=== PATIENT | female | born 1995 | race Caucasian/White ===

== ENCOUNTER 2018-10-06 21:43 | Inpatient (IN) | payer MEDICAID, OTHER ==
[~2018-10-06] VITALS: Ht 160 cm; Wt 72.7 kg
[2018-10-07] VITALS (26 sets, daily range): BP systolic 108–140; BP diastolic 69–91; PULSE 81–139; RESP 16–43; Ht 160 cm; Wt 72.7 kg
[2018-10-07] MEDS ORDERED: ONDANSETRON 4 MG INJ IV STA ×3 (00:11→00:41)
--- NOTE | 2018-10-07 00:18 | ERD ---
ER Documentation Chief Complaint Chief Complaint AP HPI The patient is a 23-year-old female, presenting to the ER because of diffuse abdominal pain for 1 week, worse tonight. The pain is more on the left side, complains of vomiting and diarrhea, denies hematemesis/hematochezia, complains of acute on chronic painful urination. She does not smoke, drinks socially, denies illicit drug, LMP was 3 months ago Medical/surgical history: None ROS All systems reviewed and are negative except as per history of present illness. Allergies Allergies: Coded Allergies: No Known Allergy (Unverified , 10/07/18) PMhx/Soc Medical and Surgical Hx: pt denies Medical Hx, pt denies Surgical Hx Hx Alcohol Use: No Hx Substance Use: No Hx Tobacco Use: No Smoking Status: Never smoker Physical Exam Vitals Vital Signs Date Temp Pulse Resp B/P (MAP) Pulse Ox O2 O2 Flow FiO2 Time Delivery Rate 10/07/18 143 40 95/46 (62) 99 Room Air 01:19 10/07/18 136 20 77/47 (57) 99 Room Air 00:23 10/06/18 97.6 144 20 132/89 97 21:50 (103) Physical Exam Const: No acute distress. Pale Head: Atraumatic. Eyes: Normal Conjunctiva. ENT: Normal External Ears, Nose and Mouth. Neck: Full range of motion. No meningismus. Resp: Clear to auscultation bilaterally. Cardio: Regular tachycardic Abd: Soft, distended, normal bowel sounds, moderate to severe diffuse abdominal tenderness, positive for guarding Skin: No petechiae or rashes. Back: No midline or flank tenderness. Ext: No cyanosis, or edema. Neur: Awake and alert. No focal deficit Psych: Normal Mood and Affect. Result Diagram: 10/07/18 0001 10/07/18 0001 Results 24 hrs Laboratory Tests Test 10/07/18 00:01 White Blood Count 30.2 10^3/ul Red Blood Count 3.70 10^6/ul Hemoglobin 10.9 g/dl Hematocrit 33.2 % Mean Corpuscular Volume 89.7 fl Mean Corpuscular Hemoglobin 29.5 pg Mean Corpuscular Hemoglobin Concent 32.8 g/dl Red Cell Distribution Width 13.0 % Platelet Count 334 10^3/UL Mean Platelet Volume 11.5 fl Immature Granulocytes % 2.500 % Neutrophils % 75.9 % Lymphocytes % 15.2 % Monocytes % 5.4 % Eosinophils % 0.4 % Basophils % 0.6 % Nucleated Red Blood Cells % 0.0 /100WBC Immature Granulocytes # 0.760 10^3/ul Neutrophils # 22.9 10^3/ul Lymphocytes # 4.6 10^3/ul Monocytes # 1.6 10^3/ul Eosinophils # 0.1 10^3/ul Basophils # 0.2 10^3/ul Nucleated Red Blood Cells # 0.0 10^3/ul Sodium Level 138 mmol/L Potassium Level 3.0 mmol/L Chloride Level 101 mmol/L Carbon Dioxide Level 17 mmol/L Anion Gap 20 Blood Urea Nitrogen 10 mg/dl Creatinine 1.33 mg/dl Est Glomerular Filtrat Rate mL/min 50 mL/min Glucose Level 353 mg/dl Calcium Level 8.8 mg/dl Total Bilirubin 0.3 mg/dl Direct Bilirubin 0.00 mg/dl Indirect Bilirubin 0.3 mg/dl Aspartate Amino Transf (AST/SGOT) 19 IU/L Alanine Aminotransferase (ALT/SGPT) 21 IU/L Alkaline Phosphatase 50 IU/L Total Protein 6.4 g/dl Albumin 4.0 g/dl Globulin 2.40 g/dl Albumin/Globulin Ratio 1.66 Lipase 64 U/L Beta HCG, Quantitative 93209.0 mIU/ml Current Medications Medications Dose Sig/Tamar Start Time Status Last (Trade) Ordered Route PRN Stop Time Admin Dose Reason Admin Ondansetron 4 mg ONCE STAT 10/07/18 DC 10/07/18 HCl (Zofran IV 00:11 00:16 Inj) 10/07/18 00:13 Sodium 1,000 ml @ Q1H ONCE 10/07/18 DC 10/07/18 Chloride 1,000 mls/hr IV 01:00 00:47 10/07/18 01:59 Sodium 1,000 ml @ Q1H ONCE 10/07/18 DC 10/07/18 Chloride 1,000 mls/hr IV 01:00 01:03 10/07/18 01:59 Ondansetron 4 mg ONCE STAT 10/07/18 DC HCl (Zofran IV 00:31 Inj) 10/07/18 00:35 Ondansetron 4 mg ONCE STAT 10/07/18 DC HCl (Zofran IV 00:41 Inj) 10/07/18 00:42 Piperacillin 100 ml @ ONCE ONCE 10/07/18 DC 10/07/18 Sod/ 200 mls/hr IVPB 02:00 01:55 Tazobactam 10/07/18 02:29 Sod Potassium 100 ml @ ONCE ONCE 10/07/18 Chloride 50 mls/hr IVPB 02:00 10/07/18 03:59 250 ml @ ud STK-MED 10/07/18 DC Norepinephrin ONCE .ROUTE 02:40 e 10/07/18 02:41 250 ml @ TITRATE IV 10/07/18 10/07/18 Norepinephrin 1.875 mls/ 03:00 02:56 e hr Procedures/[place] [id number] Radiology Main Line: [phone] DIAGNOSTIC IMAGING REPORT Patient: SUKHJINDER PARIKH : 1995 Age: 23 Sex: F MR #: [id number] DOS: 10/07/18 0034 Ordering MD: SAHIL MARTINO MD Location: E/R Room/Bed: PROCEDURE: US Pelvis. CLINICAL INDICATION: Vaginal Bleed () TECHNIQUE: Multiple sonographic images of the pelvis were obtained utilizing a transabdominal and endovaginal technique. The images were reviewed on a PACS workstation. COMPARISON: None. FINDINGS: Within the left adnexa, a gestational sac is seen with a pole. Blunt rump length measures 16 mm, corresponding to an estimated gestational age of 8 weeks and 0 days. No heart tones are identified. The ovaries are not visualized. There is diffuse complex free fluid in the pe lvis. Small amount of simple free fluid is seen in the cul-de-sac as well. No intrauterine is seen within the uterus. Endometrial stripe is at the upper limits of normal for a premenopausal female, measuring 16 mm. No uterine mass identified. IMPRESSION: Gestational sac and pole identified in the left adnexa, with diffuse blood products in the pelvis. Findings consistent with ruptured ectopic . Critical findings were discussed with Sahil Mccoy ([place]) on 10/07/2018 at 2:11 AM. RPTAT:HCLE binh Bonilla, Physician Date Time Electronically viewed and signed by binh Bonilla Physician on 10/07/2018 02:14 cE/ CC: SAHIL MARTINO MD [id number] MEDICAL MAKING DECISION: The patient is a 23-year-old female, presenting with acute hypotensive and acute abdominal and pelvic pain, consistent with acute ruptured ectopic . She was treated immediately with 2 L normal saline, Zofran 4 mg IV x2 for nausea. She is still awake, alert, able to answer question but feeling very tired. She also presented with acute kidney injury, acute hypokalemia, acute hyperglycemia The differential diagnoses considered include but are not limited to cholelithiasis, cholecystitis, choledocholithiasis, cholangitis, pancreatitis, hepatitis, gastritis, peptic ulcer disease, gastric ulcer, appendicitis, cystitis, diverticulitis, partial small bowel obstruction. Consultation: I discussed the patient with the on-call sheriff detective Dr. Baugh at 1:30am before the labs are available, while the thermoplastic technician is doing the pelvic ultrasound. There are lots of blood in the pelvic area. I highly believed that it is a ruptured ectopic and requested her presence in the ER for evaluation of the patient for probable ectopic . She came down to the ER, examined the patient and agree with a tentative diagnosis of ruptured ectopic and plan for immediate surgery When the lab came back, beta hCG was 40,021, and I was able to speak to the radiologist to confirm that it is a ruptured ectopic At this time the lab came back with high leukocytosis, she was treated empirically with Zosyn IV, potassium chloride 20 mg IV for acute hyperkalemia, she was treated with Leon catheter, 2 unit of packed red blood cell. She was started on Levophed because of hypotension in the 70 after 2 L IVF while the p RBC is infusing. She remains awake/ alert throughout Central Line Placement by me: After the patient was consented and a time out was performed, appropriate hand hygiene was performed, the skin site was fully prepped and maximal sterile barrier technique was employed where the patient was sterilely draped, and the provider wore a mask and sterile gown and gloves. Anesthesia: 1% lidocaine locally Location: RIJ Device: Multiple lumen Technique: Seldinger technique. Secured with suture. Results: Venous return from all ports with easy saline flush. No complications. []Guide wire retrieved and disposed of. ED Ultrasound: Central line placed by me using concurrent ultrasound guidance done using sterile technique. Real time image archived in the medical record confirms vascular anatomy. Chest X-ray was ordered but the anesthesiologist wanted to take her immediately to the OR and will do in the ER Critical Care: Time: 35 minutes excluding all billable procedures. Treatments/Evaluations: Close monitoring and treatment of unstable vital signs, cardiorespiratory, and neurologic status, while maintaining tight balance of fluid, respiratory, and cardiac interventions. Departure Diagnosis: Primary Impression: Ruptured ectopic Additional Impressions: STONEY (acute kidney injury) Hypokalemia Hyperglycemia Anemia Leukocytosis Condition: Critical Comments I discussed the findings with the patient. I discussed the patient with Dr Baugh , who was made aware of the lab, the treatment, the patient condition. The patient is transferred to the OR Disclaimer: Inadvertent spelling and grammatical errors are likely due to EHR/dictation software use and do not reflect on the overall quality of patient care. Also, please note that the electronic time recorded on this note does not necessarily reflect the actual time of the patient encounter. SAHIL MARTINO MD October 07, 2018 00:18
[2018-10-07] MEDS ORDERED: SOD CHLORIDE 0.9% 1,000 ML IV ONE ×2 (01:00)
[2018-10-07] MEDS ORDERED: PIPER-TAZO 3.375 GM IV (PMX) 100 ML IVPB ONE (02:00)
[2018-10-07] MEDS ORDERED: POTASSIUM CHLORIDE 100 ML IVPB ONE (02:00)
--- NOTE | 2018-10-07 02:25 | CONS ---
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 U/S showes GS on left adnexa with FF in the cul de sac suggesting hemoperitoneum. HCG 40.000 with WBC 77183 Initiallu patient was tacycardic and hypotensive , resolved somewhat with f luid replacement. H&H 10.9 32 prepare for exp lap and left .salphingectomy and further indicated abdominal pain and nausea and vomiting Constitutional: no complaints, improved Eyes: no complaints ENT: no complaints Respiratory: no complaints Cardiovascular: no complaints Gastrointestinal: pain, nausea, vomiting Genitourinary: no complaints Musculoskeletal: no complaints Skin: no complaints; No bruising, No erythema, No laceration, No pruritis, No rash, No skin lesions, No other Neurologic: no complaints Endocrine: no complaints Lymphatic: no complaints Psychological: no complaints, nl mood/affect Immunologic: no complaints Past Medical History Medical History: no pertinent history Medications Current Medications Piperacillin Sod/ Tazobactam Sod 100 ml @ 200 mls/hr ONCE ONCE IVPB Last administered on 10/07/18at 01:55; Admin Dose 200 MLS/HR; Start 10/07/18 at 02:00; Stop 10/07/18 at 02:29 Potassium Chloride 100 ml @ 50 mls/hr ONCE ONCE IVPB ; Start 10/07/18 at 02:00; Stop 10/07/18 at 03:59 Allergies: Coded Allergies: No Known Allergy (Unverified , 10/07/18) Past Surgical History Past Surgical Hx: no surgical history Family History Significant Family History: no pertinent family hx Social History Alcohol Use: none Smoking Status: Never smoker Drug Use: none Exam/Review of Systems Exam Vitals Vital Signs Date Temp Pulse Resp B/P (MAP) Pulse Ox O2 O2 Flow FiO2 Time Delivery Rate 5/24/19 143 40 95/46 (62) 99 Room Air 01:19 10/06/18 97.6 21:50 Intake and Output 10/06/18 10/06/18 10/07/18 1414:59 22:59 06:59 IntakeIntake Total 2000 ml BalanceBalance 2000 ml Constitutional: oriented, obese Psych: no complaints, nl mood/affect Head: normocephalic, atraumatic Eyes: other (pale conjuntiva ) ENMT: nl external ears & nose, nl lips & teeth, nl nasal mucosa & septum Neck: supple, non-tender Respiratory: clear to auscultation, normal air movement Cardiovascular: regular rate and rhythm, nl pulses (tacycardic) Gastrointestinal: tender ( lower abdomen Lt>RT) Genitourinary - Female: other (lt adnexa GS) Musculoskeletal: nl extremities to inspection, nl gait and stance Extremities: normal pulses Neurological: EDI MANAGER II-XII intact, nl mental status, nl speech, nl strength Results Result Diagram: 10/07/18 0001 10/07/18 0001 Results 24hrs Laboratory Tests Test 10/07/18 00:01 White Blood Count 30.2 H Red Blood Count 3.70 L Hemoglobin 10.9 L Hematocrit 33.2 L Mean Corpuscular Volume 89.7 Mean Corpuscular Hemoglobin 29.5 Mean Corpuscular Hemoglobin Concent 32.8 Red Cell Distribution Width 13.0 Platelet Count 334 Mean Platelet Volume 11.5 H Immature Granulocytes % 2.500 H Neutrophils % 75.9 Lymphocytes % 15.2 Monocytes % 5.4 Eosinophils % 0.4 Basophils % 0.6 Nucleated Red Blood Cells % 0.0 Immature Granulocytes # 0.760 H Neutrophils # 22.9 H Lymphocytes # 4.6 H Monocytes # 1.6 H Eosinophils # 0.1 Basophils # 0.2 H Nucleated Red Blood Cells # 0.0 Sodium Level 138 Potassium Level 3.0 L Chloride Level 101 Carbon Dioxide Level 17 L Anion Gap 20 H Blood Urea Nitrogen 10 Creatinine 1.33 H Est Glomerular Filtrat Rate mL/min 50 L Glucose Level 353 H Calcium Level 8.8 Total Bilirubin 0.3 Direct Bilirubin 0.00 Indirect Bilirubin 0.3 Aspartate Amino Transf (AST/SGOT) 19 Alanine Aminotransferase (ALT/SGPT) 21 Alkaline Phosphatase 50 Total Protein 6.4 Albumin 4.0 Globulin 2.40 Albumin/Globulin Ratio 1.66 Lipase 64 Beta HCG, Quantitative 49027.0 Medications Medication Current Medications Piperacillin Sod/ Tazobactam Sod 100 ml @ 200 mls/hr ONCE ONCE IVPB Last administered on 10/07/18at 01:55; Admin Dose 200 MLS/HR; Start 10/07/18 at 02:00; Stop 10/07/18 at 02:29 Potassium Chloride 100 ml @ 50 mls/hr ONCE ONCE IVPB ; Start 10/07/18 at 02:00; Stop 10/07/18 at 03:59 RICK SANDERSON MD October 07, 2018 02:18
[2018-10-07] MEDS ORDERED: NORepinephrine 8MG/250 ML (PMX 250 ML ONE (02:40)
--- NOTE | 2018-10-07 02:58 | PREAC ---
Date/Time of Note Date/Time of Note DATE: 10/07/18 TIME: 02:56 Anesthesia Eval and Record Evaluation Time Pre-Procedure Interview DATE: 10/07/18 TIME: 02:56 Age 23 Sex female NPO: 8 hrs Preoperative diagnosis ectopic Planned procedure exploratory lap Past Medical History Past Medical History: Includes (hemorrhagic shock, s/p CVL on levophed 5) Surgery & Anesthesia Issues No known issue Meds Anticoagulation: No Beta Susanna within 24 hr: No Reason Beta Susanna not given: Pt. not on B-Susanna Current Medications Potassium Chloride 100 ml @ 50 mls/hr ONCE ONCE IVPB ; Start 10/07/18 at 02:00; Stop 10/07/18 at 03:59 Norepinephrine 250 ml @ 1.875 mls/ hr TITRATE IV ; Start 10/07/18 at 03:00 Meds reviewed: Yes Allergies Coded Allergies: No Known Allergy (Unverified , 10/07/18) Allergies Reviewed: Yes Labs/Studies Labs Reviewed: Reviewed by anesthesiologist Result Diagram: 10/07/18 0001 10/07/18 0001 Laboratory Tests 10/07/18 00:01 Blood Bank Test 10/07/18 00:46 Antibody Screen NEGATIVE Blood Product Summary Counts Blood Type O POSITIVE Crossmatch Red Blood Cells test: N/A Pre-procedure Exam Last vitals Vital Signs Date Temp Pulse Resp B/P (MAP) Pulse Ox O2 O2 Flow FiO2 Time Delivery Rate 10/07/18 143 40 95/46 (62) 99 Room Air 01:19 10/06/18 97.6 21:50 Airway: Adequate mouth opening, Adequate thyromental dist Mallampati: Mallampati II Teeth: Normal Lung: Normal Heart: Normal ASA Physical Status ASA physical status: 2 Emergency: E Planned Anesthetic General/MAC: ETT Nerve block: TAP (bilateral) Planned Pain Management Parenteral pain med Pre-operative Attestations Prior to commencing anesthesia and surgery, the patient was re-evaluated, there was verification of: *The patient's identity *The results of appropriate recent lab work and preoperative vital signs *The above evaluation not changing prior to induction *Anesthetic plan, risk benefits, alternative and complications discussed with patient/family; questions answered; patient/family understands, accepts and wishes to proceed. Abner France M.D. October 07, 2018 02:58
[2018-10-07] MEDS ORDERED: NORepinephrine 8MG/250 ML (PMX 250 ML IV SCH (03:00)
[2018-10-07] MEDS ORDERED: CEFAZOLIN 1 GM INJ ONE (03:04)
[2018-10-07] MEDS ORDERED: ROCURONIUM 50 MG INJ ONE (03:04)
[2018-10-07] MEDS ORDERED: PROPOFOL 20 ML ONE (03:04)
[2018-10-07] MEDS ORDERED: NEOSTIGMINE 3 MG/3 ML SYRINGE ONE (03:04)
[2018-10-07] MEDS ORDERED: GLYCOPYRROLATE 0.4 MG INJ ONE (03:04)
[2018-10-07] MEDS ORDERED: FENTAnyl 50 MCG/ML VIAL ONE ×3 (03:04→05:54)
[2018-10-07] MEDS ORDERED: ONDANSETRON 4 MG INJ ONE (03:05)
[2018-10-07] MEDS ORDERED: DEXAMETHASONE 4 MG/ML 5 ML INJ ONE (03:05)
[2018-10-07] MEDS ORDERED: MIDAZOLAM 1 MG/ML 2 ML INJ ONE (03:05)
[2018-10-07] MEDS ORDERED: ROPIVACAINE 0.5 % 30 ML VIAL ONE (04:02)
[2018-10-07] MEDS ORDERED: ALBUMIN HUMAN 5% 500 ML ONE (04:10)
[2018-10-07] MEDS ORDERED: SUGAMMADEX SODIUM 200 MG/2 ML VIAL IV ONE (05:40)
--- NOTE | 2018-10-07 07:57 | SIPON ---
Date/Time of Note Date/Time of Note DATE: 10/07/18 TIME: 07:52 Operative Report Preoperative Diagnosis ruptured ectopic hemoperitoneum Postoperative Diagnosis same as above gestational ssac intact with fetusin it ruptured left tube isthmic portion Operation/Procedure Performed exp lap left salphingectomy evacuation of hemoperitoneum( 1999cc) Surgeon see signature line nurse assistant MT Anesthesia: general Estimated blood loss: 10 - 50 ml's Transfusion Required 4 packs of RBC Specimen GS with fetus and left tube Grafts/Implants none Complications none RICK SANDERSON MD October 07, 2018 07:57
[2018-10-07] MEDS: HYDROmorphONE 1 MG/ML SYG IV PRN ×5 (09:52→22:02)
--- NOTE | 2018-10-07 14:52 | HP ---
Date/Time of Note Date/Time of Note DATE: 10/07/18 TIME: 14:49 Assessment/Plan VTE Prophylaxis Risk score (from Ns)>0 risk: 6 SCD applied (from [facility] [place]): Yes Pharmacological prophylaxis: NA/contraindicated Pharm contraindication: bleeding Lines/Catheters IV Catheter Type (from Rust): Saline Lock Urinary Cath still in place: Yes Reason Cath still needed: other (indicate) Assessment/Plan Hospital Course S: abd pain +++ O: Constitutional: alert, oriented Head: atraumatic, normocephalic Neck: non-tender, supple Respiratory: clear to auscultation Cardiovascular: regular rate and rhythm Gastrointestinal: S/ NT / ND / +BS Extremities: no edema, good radial pulses assessment and plan: 1. Severe acute blood loss anemia secondary to ruptured ectopic with hemoperitoneum -Patient is status post emergent expiratory laparotomy with left salpingectomy and evacuation of hemoperitoneum . -Patient is also status post 4 units of packed red cells 2. Hypovolemic shock secondary to blood loss: Resolved, now off pressors 3. Severe systemic inflammatory response syndrome: Improved 4. Acute renal insufficiency likely secondary to hypovolemia: Improved 5. Mild hypokalemia: Repleted 6. Thrombocytopenia: Consumptive Disposition: -If patient remains off pressors for at least 6 to 8 hours, she can be transferred to telemetry unit for continued monitoring and management. -She does remain tachycardic, continue IV fluids, continue postoperative supportive care. -Patient is also still having significant postoperative pain, recommend that she remain on clear liquids for now, ambulate as tolerated, continue close monitoring, further interventions per clinical course. CRITICAL CARE TIME: >35 mins of which more than half was spent at the bedside and during counselling Result Diagram: 10/07/18 0830 10/07/18 0816 Results 24hrs Laboratory Tests Test 10/07/18 00:01 10/07/18 08:16 10/07/18 08:30 White Blood Count 30.2 H 19.7 #H Red Blood Count 3.70 L 3.79 L Hemoglobin 10.9 L 11.3 L Hematocrit 33.2 L 32.7 L Mean Corpuscular Volume 89.7 86.3 Mean Corpuscular Hemoglobin 29.5 29.8 Mean Corpuscular Hemoglobin Concent 32.8 34.6 Red Cell Distribution Width 13.0 13.7 Platelet Count 334 104 #L Mean Platelet Volume 11.5 H 10.8 H Immature Granulocytes % 2.500 H 1.100 H Neutrophils % 75.9 87.7 H Lymphocytes % 15.2 6.7 L Monocytes % 5.4 4.3 Eosinophils % 0.4 0.0 Basophils % 0.6 0.2 Nucleated Red Blood Cells % 0.0 0.0 Immature Granulocytes # 0.760 H 0.220 H Neutrophils # 22.9 H 17.3 H Lymphocytes # 4.6 H 1.3 Monocytes # 1.6 H 0.9 Eosinophils # 0.1 0.0 Basophils # 0.2 H 0.0 Nucleated Red Blood Cells # 0.0 0.0 Sodium Level 138 139 Potassium Level 3.0 L 4.7 Chloride Level 101 114 H Carbon Dioxide Level 17 L 21 Anion Gap 20 H 4 #L Blood Urea Nitrogen 10 8 Creatinine 1.33 H 0.61 Est Glomerular Filtrat Rate mL/min 50 L > 60 Glucose Level 353 H 112 # Calcium Level 8.8 7.1 L Total Bilirubin 0.3 Direct Bilirubin 0.00 Indirect Bilirubin 0.3 Aspartate Amino Transf (AST/SGOT) 19 Alanine Aminotransferase (ALT/SGPT) 21 Alkaline Phosphatase 50 Total Protein 6.4 Albumin 4.0 Globulin 2.40 Albumin/Globulin Ratio 1.66 Lipase 64 Beta HCG, Quantitative 83310.0 HPI/ROS Admit Date/Time Admit Date/Time 10/07/18 Hx of Present Illness 23-year-old female who had presented to the emergency room because of diffuse abdominal pain that had been going on for a week but was worse yesterday on the left side. She had also had some vomiting and dysuria. She was worked up using an ultrasound of the pelvis after her labs that showed that she was she was found to have an ectopic in the left adnexa with diffuse blood products in the pelvis. A central line was placed in the emergency room and the patient was taken immediately to the operating room where she underwent emergent expiratory laparotomy with left salpingectomy and evacuation of hemoperitoneum. Patient lost 2 L of blood and has required 4 units of packed red cells transfusion since surgery. At this time she is doing well. She was in septic shock at this time is off pressor support still remains mildly tachycardic. Her main complaint at this time is significant postoperative pain she is being given intravenous Dilaudid every 2 hours which tends to take the edge of the pain. Will be consulted for medical management and monitoring. She did have a transient increase in her creatinine levels, but this has improved after transfusion. There has been no fever, no shortness of breath, no chest pain. Patient is overall lethargic. ROS 12 point review if systems was done and pertinent findings are as noted. PMH/Family/Social Past Medical History Medical History: no pertinent history Medications Current Medications Hydromorphone HCl (Dilaudid) 1 mg Q2H PRN IV SEVERE PAIN LEVEL 7-10 Last administered on 10/07/18at 13:22; Admin Dose 1 MG; Start 10/07/18 at 10:00 Coded Allergies: No Known Allergy (Unverified , 10/07/18) Past Surgical History Past Surgical Hx: no surgical history Family History Significant Family History: no pertinent family hx Social History Alcohol Use: none Smoking Status: Never smoker Drug Use: none Exam/Review of Systems Vital Signs Vitals Vital Signs Date Temp Pulse Resp B/P (MAP) Pulse Ox O2 O2 Flow FiO2 Time Delivery Rate 10/07/18 106 27 124/75 100 Nasal 2.0 14:00 (91) Cannula 10/07/18 98.7 12:00 Intake and Output 10/06/18 10/06/18 10/07/18 1515:00 23:00 07:00 IntakeIntake Total 5100 ml OutputOutput Total 3250 ml BalanceBalance 1850 ml ELAYNE PAZ October 07, 2018 14:52
[2018-10-07] MEDS: SOD CHLORIDE 0.9% 1,000 ML IV SCH ×2 (15:45→22:32)
--- NOTE | 2018-10-07 16:04 | QN ---
Documentation Comment VSS no tachycardia RR down to 22 h&H stable no further blood transfusion required no FFP given [place] [address] [place] [address] observe tonite in ICU out in am to telemetry RICK SANDERSON MD October 07, 2018 16:04
[2018-10-08] VITALS (11 sets, daily range): BP systolic 102–117; BP diastolic 51–68; PULSE 80–127; RESP 18–22
[2018-10-08] MEDS: HYDROmorphONE 1 MG/ML SYG IV PRN ×6 (02:23→20:55)
[2018-10-08] MEDS: SOD CHLORIDE 0.9% 1,000 ML IV SCH ×3 (06:11→23:00)
--- NOTE | 2018-10-08 11:04 | PAC ---
Date/Time of Note Date/Time of Note DATE: 10/08/18 TIME: 11:03 Post-Anesthesia Notes Post-Anesthesia Note Last documented vital signs Vital Signs Date Temp Pulse Resp B/P (MAP) Pulse Ox O2 O2 Flow FiO2 Time Delivery Rate 10/08/18 83 08:00 10/08/18 98.6 22 102/51 96 Room Air 07:43 (68) 10/08/18 1.0 07:26 Activity: WNL Respiratory function: WNL Cardiovascular function: WNL Mental status: Baseline Pain reasonably controlled: Yes Hydration appropriate: Yes Nausea/Vomiting absent: Yes Abner France M.D. October 08, 2018 11:04
--- NOTE | 2018-10-08 12:29 | QN ---
Documentation Comment Postop day #1 Status post exploratory laparotomy, left salpingectomy and evacuation of hemoperitoneum (2 L) for ruptured ectopic Patient received a total of 4 units of packed RBCs Patient stable doing well Complaining of incisional pain Vital signs stable VS - Last 72 Hours, by Label Date Temp Pulse Resp B/P (MAP) Pulse Ox O2 O2 Flow FiO2 Time Delivery Rate 10/08/18 97.6 120 22 112/62 96 Room Air 11:46 (79) 10/08/18 83 08:00 10/08/18 98.6 98 22 102/51 96 Room Air 07:43 (68) 10/08/18 Nasal 1.0 07:26 Cannula 10/08/18 85 04:00 10/08/18 98.2 80 18 111/53 98 Nasal 2.0 04:00 (72) Cannula 10/08/18 2.0 01:47 10/08/18 98.1 83 18 107/56 97 Nasal 2.0 00:14 (73) Cannula 10/08/18 90 00:00 10/07/18 113 20:00 10/07/18 Nasal 2.0 19:50 Cannula 10/07/18 130 19:48 10/07/18 98.2 96 18 140/86 100 Nasal 2.0 19:40 (104) Cannula 10/07/18 2.0 18:48 10/07/18 98.6 115 16 123/69 100 Nasal 18:44 (87) Cannula 10/07/18 99 16:57 10/07/18 Nasal 2.0 16:29 Cannula 10/07/18 96 22 117/75 100 15:00 (89) 10/07/18 106 27 124/75 100 Nasal 2.0 14:00 (91) Cannula 10/07/18 114 25 114/78 100 13:00 (90) 10/07/18 117 12:00 10/07/18 98.7 116 39 115/76 100 Nasal 2.0 12:00 (89) Cannula 10/07/18 118 43 117/86 100 11:00 (96) 10/07/18 139 26 137/91 100 Nasal 2.0 10:00 (106) Cannula 10/07/18 108 29 114/91 09:30 (99) 10/07/18 90 31 118/83 100 Nasal 2.0 09:00 (95) Cannula 10/07/18 105 36 118/83 08:45 (95) 10/07/18 96 26 114/75 08:30 (88) 10/07/18 86 39 108/79 08:15 (89) 10/07/18 89 08:00 10/07/18 Nasal 2.0 08:00 Cannula 10/07/18 98.5 90 38 114/81 100 Nasal 2.0 08:00 (92) Cannula 10/07/18 87 38 108/76 07:45 (87) 10/07/18 87 28 113/85 07:30 (94) 10/07/18 94 30 120/84 07:15 (96) 10/07/18 101 25 111/75 100 Room Air 2.0 07:00 (87) 10/07/18 81 27 114/75 06:45 (88) 10/07/18 92 25 115/76 06:30 (89) 10/07/18 98.0 06:24 10/07/18 116 16 116/69 06:15 (85) 10/07/18 123 06:11 10/07/18 100 2.0 06:10 10/07/18 97.6 101 24 124/79 100 Room Air 2.0 06:08 (94) 10/07/18 143 40 95/46 (62) 99 Room Air 01:19 10/07/18 136 20 77/47 (57) 99 Room Air 00:23 10/06/18 97.6 144 20 132/89 97 21:50 (103) Hematology - 72 Hrs Test 10/07/18 00:01 10/07/18 08:30 10/08/18 05:48 Hematocrit 33.2 % (37.0-47.0) 32.7 % (37.0-47.0) 23.9 % (37.0-47.0) L L #L Hemoglobin 10.9 11.3 8.1 g/dl (12.0-16.0) L g/dl (12.0-16.0) g/dl (12.0-16.0) L #L Mean Corpuscular 29.5 pg (29.0-33.0) 29.8 29.7 Hemoglobin pg (29.0-33.0) pg (29.0-33.0) Mean Corpuscular 32.8 34.6 33.9 Hemoglobin Concent g/dl (32.0-37.0) g/dl (32.0-37.0) g/dl (32.0-37.0) Mean Corpuscular 89.7 86.3 87.5 Volume fl (82.0-101.0) fl (82.0-101.0) fl (82.0-101.0) Mean Platelet 11.5 fl (7.4-10.4) 10.8 fl (7.4-10.4) 11.2 fl (7.4-10.4) Volume H H H Platelet Count 334 104 106 10^3/UL (140-415) 10^3/UL (140-415) 10^3/UL (140-415) #L L Red Blood Count 3.70 3.79 2.73 10^6/ul (4.20-5.40) 10^6/ul (4.20-5.40 10^6/ul (4.20-5.40 L ) L ) #L Red Cell 13.0 % (11.5-14.5) 13.7 % (11.5-14.5) 14.1 % (11.5-14.5) Distribution Width White Blood Count 30.2 19.7 12.7 10^3/ul (4.8-10.8) 10^3/ul (4.8-10.8) 10^3/ul (4.8-10.8) H #H #H Chemistry Test 10/07/18 00:01 10/07/18 08:16 10/08/18 05:48 Sodium Level 138 139 141 mmol/L (135-144) mmol/L (135-144) mmol/L (135-144) Potassium Level 3.0 4.7 3.7 mmol/L (3.5-5.1) L mmol/L (3.5-5.1) mmol/L (3.5-5.1) Chloride Level 101 mmol/L (97-110) 114 110 mmol/L (97-110) H mmol/L (97-110) Carbon Dioxide 17 mmol/L (21-31) 21 mmol/L (21-31) 25 mmol/L (21-31) Level L Anion Gap 20 (5-13) H 4 (5-13) #L 6 (5-13) Blood Urea 10 mg/dl (7-20) 8 mg/dl (7-20) 6 mg/dl (7-20) L Nitrogen Creatinine 1.33 0.61 0.50 mg/dl (0.44-1.00) mg/dl (0.44-1.00) mg/dl (0.44-1.00) H Est Glomerular 50 mL/min (>60) L > 60 mL/min (>60) > 60 mL/min (>60) Filtrat Rate mL/min Glucose Level 353 mg/dl (70-220) 112 mg/dl (70-220) 81 mg/dl (70-220) H # Calcium Level 8.8 7.1 7.8 mg/dl (8.4-10.2) mg/dl (8.4-10.2) mg/dl (8.4-10.2) L L Total Bilirubin 0.3 mg/dl (0.2-1.3) 0.5 mg/dl (0.2-1.3) Direct Bilirubin 0.00 0.00 mg/dl (0.00-0.20) mg/dl (0.00-0.20) Indirect Bilirubin 0.3 mg/dl (0-1.1) 0.5 mg/dl (0-1.1) Aspartate Amino 19 IU/L (15-46) 24 IU/L (15-46) Transf (AST/SGOT) Alanine 21 IU/L (13-69) 18 IU/L (13-69) Aminotransferase (A LT/SGPT) Alkaline 50 IU/L (42-121) 44 IU/L (42-121) Phosphatase Total Protein 6.4 g/dl (6.1-8.1) 4.8 g/dl (6.1-8.1) #L Albumin 4.0 g/dl (3.3-4.9) 2.7 g/dl (3.3-4.9) #L Globulin 2.40 g/dl (1.3-3.2) Albumin/Globulin 1.66 Ratio Lipase 64 U/L (23-300) Beta HCG, 00249.0 mIU/ml Quantitative Magnesium Level 1.8 mg/dl (1.7-2.5) Abdomen soft Dressing clean dry intact Extremities nontender Assessment and plan Dressing to be removed Leon catheter to be removed Encouraged to ambulate Repeat CBC in a.andi. DORA ECHOLS MD October 08, 2018 12:29
--- NOTE | 2018-10-08 15:06 | PN ---
Date/Time of Note Date/Time of Note DATE: 10/08/18 TIME: 15:04 Assessment/Plan VTE Prophylaxis Risk score (from Ns)>0 risk: 7 [place] [facility] [place] SCD contraindicated: low risk/ambulating Pharmacological prophylaxis: NA/contraindicated Pharm contraindication: bleeding Lines/Catheters [facility] Central Line Central line still needed: Yes Urinary Cath still in place: Yes Reason Cath still needed: urinary retention Assessment/Plan Hospital Course Assessment and plan 1. Ectopic /abdominal pain status post expiratory laparotomy unilateral salpingo-oophorectomy, stable treat pain 2. Shock likely hemorrhagic possible sepsis stable improved continue supportive care 3. Acute blood loss anemia stable, transfuse as needed Subjective: Patient feels okay. Needs a work note. No chest pain dyspnea Objective: Vital signs stable Physical exam No pallor Regular Clear Bs diminished mild tender nd no RRG No edema Result Diagram: 10/08/18 0548 10/08/18 0548 Results 24hrs Laboratory Tests Test 10/07/18 18:35 10/08/18 05:48 Urine Color STRAW Urine Clarity CLEAR Urine pH 5.0 Urine Specific [place] 1.014 Urine Ketones 2+ H Urine Nitrite NEGATIVE Urine Bilirubin NEGATIVE Urine Urobilinogen NEGATIVE Urine Leukocyte Esterase NEGATIVE Urine Microscopic RBC 1 Urine Microscopic WBC 4 Urine Mucus FEW A Urine Hemoglobin 1+ H Urine Glucose NEGATIVE Urine Total Protein NEGATIVE White Blood Count 12.7 #H Red Blood Count 2.73 #L Hemoglobin 8.1 #L Hematocrit 23.9 #L Mean Corpuscular Volume 87.5 Mean Corpuscular Hemoglobin 29.7 Mean Corpuscular Hemoglobin Concent 33.9 Red Cell Distribution Width 14.1 Platelet Count 106 L Mean Platelet Volume 11.2 H Immature Granulocytes % 0.400 Neutrophils % 72.0 Lymphocytes % 18.6 Monocytes % 8.8 Eosinophils % 0.0 Basophils % 0.2 Nucleated Red Blood Cells % 0.0 Immature Granulocytes # 0.050 H Neutrophils # 9.1 H Lymphocytes # 2.4 Monocytes # 1.1 H Eosinophils # 0.0 Basophils # 0.0 Nucleated Red Blood Cells # 0.0 Sodium Level 141 Potassium Level 3.7 Chloride Level 110 Carbon Dioxide Level 25 Anion Gap 6 Blood Urea Nitrogen 6 L Creatinine 0.50 Est Glomerular Filtrat Rate mL/min > 60 Glucose Level 81 Calcium Level 7.8 L Magnesium Level 1.8 Total Bilirubin 0.5 Direct Bilirubin 0.00 Indirect Bilirubin 0.5 Aspartate Amino Transf (AST/SGOT) 24 Alanine Aminotransferase (ALT/SGPT) 18 Alkaline Phosphatase 44 Total Protein 4.8 #L Albumin 2.7 #L Exam/Review of Systems Exam Vitals Vital Signs Date Temp Pulse Resp B/P (MAP) Pulse Ox O2 O2 Flow FiO2 Time Delivery Rate 10/08/18 97.6 120 22 112/62 96 Room Air 11:46 (79) 10/08/18 1.0 07:26 Intake and Output 10/07/18 10/07/18 10/08/18 1515:00 23:00 07:00 IntakeIntake Total 360 ml 375 ml 200 ml OutputOutput Total 850 ml 850 ml BalanceBalance -490 ml 375 ml -650 ml Results Results 24hrs Laboratory Tests Test 10/07/18 18:35 10/08/18 05:48 Urine Color STRAW Urine Clarity CLEAR Urine pH 5.0 Urine Specific [place] 1.014 Urine Ketones 2+ H Urine Nitrite NEGATIVE Urine Bilirubin NEGATIVE Urine Urobilinogen NEGATIVE Urine Leukocyte Esterase NEGATIVE Urine Microscopic RBC 1 Urine Microscopic WBC 4 Urine Mucus FEW A Urine Hemoglobin 1+ H Urine Glucose NEGATIVE Urine Total Protein NEGATIVE White Blood Count 12.7 #H Red Blood Count 2.73 #L Hemoglobin 8.1 #L Hematocrit 23.9 #L Mean Corpuscular Volume 87.5 Mean Corpuscular Hemoglobin 29.7 Mean Corpuscular Hemoglobin Concent 33.9 Red Cell Distribution Width 14.1 Platelet Count 106 L Mean Platelet Volume 11.2 H Immature Granulocytes % 0.400 Neutrophils % 72.0 Lymphocytes % 18.6 Monocytes % 8.8 Eosinophils % 0.0 Basophils % 0.2 Nucleated Red Blood Cells % 0.0 Immature Granulocytes # 0.050 H Neutrophils # 9.1 H Lymphocytes # 2.4 Monocytes # 1.1 H Eosinophils # 0.0 Basophils # 0.0 Nucleated Red Blood Cells # 0.0 Sodium Level 141 Potassium Level 3.7 Chloride Level 110 Carbon Dioxide Level 25 Anion Gap 6 Blood Urea Nitrogen 6 L Creatinine 0.50 Est Glomerular Filtrat Rate mL/min > 60 Glucose Level 81 Calcium Level 7.8 L Magnesium Level 1.8 Total Bilirubin 0.5 Direct Bilirubin 0.00 Indirect Bilirubin 0.5 Aspartate Amino Transf (AST/SGOT) 24 Alanine Aminotransferase (ALT/SGPT) 18 Alkaline Phosphatase 44 Total Protein 4.8 #L Albumin 2.7 #L Medications Medication Current Medications Hydromorphone HCl (Dilaudid) 1 mg Q2H PRN IV SEVERE PAIN LEVEL 7-10 Last administered on 10/08/18at 11:54; Admin Dose 1 MG; Start 10/07/18 at 10:00 Sodium Chloride 1,000 ml @ 125 mls/hr Q8H IV Last administered on 10/08/18at 06:11; Admin Dose 125 MLS/HR; Start 10/07/18 at 15:00 ANGEL ORTIZ MD October 08, 2018 15:06
[2018-10-08] MEDS ORDERED: HYDROCODONE/APAP (10/325) TAB PO PRN (15:30)
[2018-10-08] MEDS: metroNIDAZOLE 500 MG/NS (PMX) 100 ML IVPB SCH ×2 (15:31→20:54)
[2018-10-08] MEDS: FAMOTIDINE 20 MG INJ IV SCH (15:31)
[2018-10-08] MEDS ORDERED: CIPROFLOXACIN 400MG/D5W 200 ML IVPB SCH (16:00)
[2018-10-08] MEDS ORDERED: DIPHENHYDRAMINE 50 MG INJ IV PRN (18:30)
[2018-10-09] VITALS (9 sets, daily range): BP systolic 112–122; BP diastolic 56–69; PULSE 89–116; RESP 15–22
[2018-10-09] MEDS: metroNIDAZOLE 500 MG/NS (PMX) 100 ML IVPB SCH ×2 (06:09→13:32)
[2018-10-09] MEDS: SOD CHLORIDE 0.9% 1,000 ML IV SCH ×3 (06:09→22:10)
[2018-10-09] MEDS: FAMOTIDINE 20 MG INJ IV SCH (08:26)
--- NOTE | 2018-10-09 16:26 | QN ---
Documentation Comment POD#2 s/p ruptured ectopic with 2 liters of hemoperitoneum and s/p 4 units PRBC's. Pt is feeling better today. Has gotten up to the bathroom and did not feel lightheaded. No ARRINGTON's. Really wants the IV out of her neck! +flatus. T=99.0 BP 118/67 Abdomen soft, ND. Dressing clean, dry, and intact. P: D/C IV. Transfer to med-surg. Encourage ambulation and probable d/c for tomorrow. Regular diet. May shower. MARINA ROJAS MD October 09, 2018 16:26
--- NOTE | 2018-10-09 20:55 | PN ---
Date/Time of Note Date/Time of Note DATE: 10/09/18 TIME: 20:53 Assessment/Plan VTE Prophylaxis Risk score (from Ns)>0 risk: 7 SCD applied (from Ns): Yes SCD contraindicated: low risk/ambulating Pharmacological prophylaxis: NA/contraindicated Pharm contraindication: low risk/ambulating Lines/Catheters IV Catheter Type (from Nrsg): Central Line Central line still needed: Yes Urinary Cath still in place: No Assessment/Plan Hospital Course Assessment and plan 1. Ectopic /abdominal pain status post expiratory laparotomy unilateral salpingo-oophorectomy, stable treat pain 2. Shock likely hemorrhagic possible sepsis stable improved continue supportive care 3. Acute blood loss anemia stable, transfuse as needed S: 10/08 Patient feels okay. Needs a work note. No chest pain dyspnea 10/09 feels ok; some pv bleeding. no fever/ dyspnea. 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 didnt tolerate cipro. O: Vss Physical exam No pallor Regular Clear Bs dimin mild tender nd no RRG No edema Result Diagram: 10/09/18 0547 10/09/18 0547 Results 24hrs Laboratory Tests Test 10/09/18 05:47 White Blood Count 9.4 # Red Blood Count 2.73 L Hemoglobin 8.2 L Hematocrit 24.3 L Mean Corpuscular Volume 89.0 Mean Corpuscular Hemoglobin 30.0 Mean Corpuscular Hemoglobin Concent 33.7 Red Cell Distribution Width 14.0 Platelet Count 132 #L Mean Platelet Volume 10.8 H Immature Granulocytes % 0.500 H Neutrophils % 65.7 Lymphocytes % 23.8 Monocytes % 8.8 Eosinophils % 0.7 Basophils % 0.5 Nucleated Red Blood Cells % 0.0 Immature Granulocytes # 0.050 H Neutrophils # 6.2 Lymphocytes # 2.2 Monocytes # 0.8 Eosinophils # 0.1 Basophils # 0.1 Nucleated Red Blood Cells # 0.0 Prothrombin Time 14.5 Prothrombin Time Ratio 1.1 INR International Normalized Ratio 1.12 Sodium Level 140 Potassium Level 3.5 Chloride Level 107 Carbon Dioxide Level 28 Anion Gap 5 Blood Urea Nitrogen 6 L Creatinine 0.61 Est Glomerular Filtrat Rate mL/min > 60 Glucose Level 85 Hemoglobin A1c 5.4 Calcium Level 8.1 L Phosphorus Level 2.7 Magnesium Level 1.9 Total Bilirubin 0.4 Direct Bilirubin 0.00 Indirect Bilirubin 0.4 Aspartate Amino Transf (AST/SGOT) 21 Alanine Aminotransferase (ALT/SGPT) 21 Alkaline Phosphatase 50 Total Protein 5.4 L Albumin 2.9 L Globulin 2.50 Albumin/Globulin Ratio 1.16 Thyroid Stimulating Hormone (TSH) 3.120 Exam/Review of Systems Exam Vitals Vital Signs Date Temp Pulse Resp B/P (MAP) Pulse Ox O2 O2 Flow FiO2 Time Delivery Rate 10/09/18 98.1 115 18 122/69 97 Room Air 20:14 (86) 10/09/18 2.0 27 02:05 Intake and Output 10/08/18 10/08/18 10/09/18 1515:00 23:00 07:00 IntakeIntake Total 1300 ml 1000 ml OutputOutput Total 2100 ml BalanceBalance -2100 ml 1300 ml 1000 ml Results Results 24hrs Laboratory Tests Test 10/09/18 05:47 White Blood Count 9.4 # Red Blood Count 2.73 L Hemoglobin 8.2 L Hematocrit 24.3 L Mean Corpuscular Volume 89.0 Mean Corpuscular Hemoglobin 30.0 Mean Corpuscular Hemoglobin Concent 33.7 Red Cell Distribution Width 14.0 Platelet Count 132 #L Mean Platelet Volume 10.8 H Immature Granulocytes % 0.500 H Neutrophils % 65.7 Lymphocytes % 23.8 Monocytes % 8.8 Eosinophils % 0.7 Basophils % 0.5 Nucleated Red Blood Cells % 0.0 Immature Granulocytes # 0.050 H Neutrophils # 6.2 Lymphocytes # 2.2 Monocytes # 0.8 Eosinophils # 0.1 Basophils # 0.1 Nucleated Red Blood Cells # 0.0 Prothrombin Time 14.5 Prothrombin Time Ratio 1.1 INR International Normalized Ratio 1.12 Sodium Level 140 Potassium Level 3.5 Chloride Level 107 Carbon Dioxide Level 28 Anion Gap 5 Blood Urea Nitrogen 6 L Creatinine 0.61 Est Glomerular Filtrat Rate mL/min > 60 Glucose Level 85 Hemoglobin A1c 5.4 Calcium Level 8.1 L Phosphorus Level 2.7 Magnesium Level 1.9 Total Bilirubin 0.4 Direct Bilirubin 0.00 Indirect Bilirubin 0.4 Aspartate Amino Transf (AST/SGOT) 21 Alanine Aminotransferase (ALT/SGPT) 21 Alkaline Phosphatase 50 Total Protein 5.4 L Albumin 2.9 L Globulin 2.50 Albumin/Globulin Ratio 1.16 Thyroid Stimulating Hormone (TSH) 3.120 Medications Medication Current Medications Hydromorphone HCl (Dilaudid) 1 mg Q2H PRN IV SEVERE PAIN LEVEL 7-10 Last administered on 10/08/18 20:55; Admin Dose 1 MG; Start 10/07/18 at 10:00 Sodium Chloride 1,000 ml @ 125 mls/hr Q8H IV Last administered on 10/09/18 06:09; Admin Dose 125 MLS/HR; Start 10/07/18 at 15:00 Famotidine (Pepcid Iv) 20 mg DAILY IV Last administered on 10/09/18 08:26; Admin Dose 20 MG; Start 10/08/18 at 15:30 Metronidazole 100 ml @ 100 mls/hr Q8 IVPB Last administered on 10/09/18at 13:32; Admin Dose 100 MLS/HR; Start 10/08/18 at 15:30 Acetaminophen/ Hydrocodone Bitart ([place] (10/325)) 1 tab Q4H PRN PO MODERATE PAIN LEVEL 4-6; Start 10/08/18 at 15:30 Diphenhydramine HCl (Benadryl) 25 mg Q8H PRN IV ALLERGY Last administered on 10/08/18at 18:47; Admin Dose 25 MG; Start 10/08/18 at 18:30 ANGEL ORTIZ MD October 09, 2018 20:55
[2018-10-09] MEDS: AMOXICILLIN/CLAV 500 MG TAB PO SCH (23:24)
[2018-10-10 02:21] VITALS: BP 100/51; PULSE 76; RESP 18
[2018-10-10 07:15] VITALS: BP 99/64; PULSE 77; RESP 18
[2018-10-10] MEDS: AMOXICILLIN/CLAV 500 MG TAB PO SCH (08:51)
[2018-10-10] MEDS ORDERED: FAMOTIDINE 20 MG TAB PO SCH (09:00)
--- NOTE | 2018-10-10 09:54 | DS ---
Date/Time of Note Date/Time of Note DATE: 10/10/18 TIME: 09:54 Discharge Summary Admission/Discharge Info Admit Date/Time October 07, 2018 at 06:13 Discharge Date/Time October 10, 2018 Patient Condition: Good Hospital Course Postop day #3 Status post exploratory laparotomy, left salpingectomy and evacuation of hemoperitoneum (2 L) for ruptured ectopic Patient received a total of 4 units of packed RBCs Patient stable and afebrile and doing well She is ambulating, voiding adequately, passing gas and positive bowel movement and tolerating regular diet VS - Last 72 Hours, by Label Date Temp Pulse Resp B/P (MAP) Pulse Ox O2 O2 Flow FiO2 Time Delivery Rate 10/10/18 99 21 07:37 10/10/18 98.4 77 18 99/64 (76) 99 Room Air 07:15 10/10/18 2.0 06:28 10/10/18 98.1 76 18 100/51 96 Room Air 02:21 (67) 10/09/18 2.0 22:00 10/09/18 98.1 115 18 122/69 97 Room Air 20:14 (86) 10/09/18 99.0 89 15 118/67 99 Room Air 16:09 (84) 10/09/18 100 13:12 10/09/18 98.0 95 22 117/56 96 Room Air 11:51 (76) 10/09/18 105 08:55 10/09/18 98.0 105 22 112/58 96 Room Air 08:01 (76) 10/09/18 99.0 91 18 114/56 98 Room Air 04:02 (75) 10/09/18 105 04:00 10/09/18 2.0 27 02:05 10/09/18 97.6 107 18 112/68 94 Room Air 00:00 (83) 10/09/18 116 00:00 10/08/18 Nasal 1.0 21:00 Cannula 10/08/18 2.0 27 20:12 10/08/18 104 20:00 10/08/18 97.5 105 18 117/68 98 Room Air 19:44 (84) 10/08/18 126 16:00 10/08/18 97.8 127 22 107/57 96 Room Air 15:18 (74) 10/08/18 113 12:00 10/08/18 97.6 120 22 112/62 96 Room Air 11:46 (79) 10/08/18 83 08:00 10/08/18 98.6 98 22 102/51 96 Room Air 07:43 (68) 10/08/18 Nasal 1.0 07:26 Cannula 10/08/18 85 04:00 10/08/18 98.2 80 18 111/53 98 Nasal 2.0 04:00 (72) Cannula 10/08/18 2.0 01:47 10/08/18 98.1 83 18 107/56 97 Nasal 2.0 00:14 (73) Cannula 10/08/18 90 00:00 10/07/18 113 20:00 10/07/18 Nasal 2.0 19:50 Cannula 10/07/18 130 19:48 10/07/18 98.2 96 18 140/86 100 Nasal 2.0 19:40 (104) Cannula 10/07/18 2.0 18:48 10/07/18 98.6 115 16 123/69 100 Nasal 18:44 (87) Cannula 10/07/18 99 16:57 10/07/18 Nasal 2.0 16:29 Cannula 10/07/18 96 22 117/75 100 15:00 (89) 10/07/18 106 27 124/75 100 Nasal 2.0 14:00 (91) Cannula 10/07/18 114 25 114/78 100 13:00 (90) 10/07/18 117 12:00 10/07/18 98.7 116 39 115/76 100 Nasal 2.0 12:00 (89) Cannula 10/07/18 118 43 117/86 100 11:00 (96) 10/07/18 139 26 137/91 100 Nasal 2.0 10:00 (106) Cannula Hematology - 72 Hrs Test 10/08/18 05:48 10/09/18 05:47 10/10/18 07:24 Hematocrit 23.9 % (37.0-47.0) 24.3 % (37.0-47.0) 25.6 % (37.0-47.0) #L L L Hemoglobin 8.1 8.2 8.6 g/dl (12.0-16.0) g/dl (12.0-16.0) g/dl (12.0-16.0) #L L L Mean Corpuscular 29.7 pg (29.0-33.0) 30.0 29.7 Hemoglobin pg (29.0-33.0) pg (29.0-33.0) Mean Corpuscular 33.9 33.7 33.6 Hemoglobin Concent g/dl (32.0-37.0) g/dl (32.0-37.0) g/dl (32.0-37.0) Mean Corpuscular 87.5 89.0 88.3 Volume fl (82.0-101.0) fl (82.0-101.0) fl (82.0-101.0) Mean Platelet 11.2 fl (7.4-10.4) 10.8 fl (7.4-10.4) 10.3 fl (7.4-10.4) Volume H H Platelet Count 106 132 168 10^3/UL (140-415) 10^3/UL (140-415) 10^3/UL (140-415) L #L # Red Blood Count 2.73 2.73 2.90 10^6/ul (4.20-5.40) 10^6/ul (4.20-5.40 10^6/ul (4.20-5.40 #L ) L ) L Red Cell 14.1 % (11.5-14.5) 14.0 % (11.5-14.5) 13.4 % (11.5-14.5) Distribution Width White Blood Count 12.7 9.4 7.4 10^3/ul (4.8-10.8) 10^3/ul (4.8-10.8) 10^3/ul (4.8-10.8) #H # # Chemistry Test 10/08/18 05:48 10/09/18 05:47 10/10/18 04:43 Sodium Level 141 140 140 mmol/L (135-144) mmol/L (135-144) mmol/L (135-144) Potassium Level 3.7 3.5 3.6 mmol/L (3.5-5.1) mmol/L (3.5-5.1) mmol/L (3.5-5.1) Chloride Level 110 mmol/L (97-110) 107 109 mmol/L (97-110) mmol/L (97-110) Carbon Dioxide 25 mmol/L (21-31) 28 mmol/L (21-31) 24 mmol/L (21-31) Level Anion Gap 6 (5-13) 5 (5-13) 7 (5-13) Blood Urea 6 mg/dl (7-20) L 6 mg/dl (7-20) L 9 mg/dl (7-20) Nitrogen Creatinine 0.50 0.61 0.46 mg/dl (0.44-1.00) mg/dl (0.44-1.00) mg/dl (0.44-1.00) Est Glomerular > 60 mL/min (>60) > 60 mL/min (>60) > 60 mL/min (>60) Filtrat Rate mL/min Glucose Level 81 mg/dl (70-220) 85 mg/dl (70-220) 79 mg/dl (70-220) Calcium Level 7.8 8.1 7.8 mg/dl (8.4-10.2) L mg/dl (8.4-10.2) mg/dl (8.4-10.2) L L Magnesium Level 1.8 mg/dl (1.7-2.5) 1.9 mg/dl (1.7-2.5) Total Bilirubin 0.5 mg/dl (0.2-1.3) 0.4 mg/dl (0.2-1.3) Direct Bilirubin 0.00 0.00 mg/dl (0.00-0.20) mg/dl (0.00-0.20) Indirect Bilirubin 0.5 mg/dl (0-1.1) 0.4 mg/dl (0-1.1) Aspartate Amino 24 IU/L (15-46) 21 IU/L (15-46) Transf (AST/SGOT) Alanine 18 IU/L (13-69) 21 IU/L (13-69) Aminotransferase (A LT/SGPT) Alkaline 44 IU/L (42-121) 50 IU/L (42-121) Phosphatase Total Protein 4.8 g/dl (6.1-8.1) 5.4 g/dl (6.1-8.1) #L L Albumin 2.7 g/dl (3.3-4.9) 2.9 g/dl (3.3-4.9) #L L Hemoglobin A1c 5.4 % (0-5.9) Phosphorus Level 2.7 mg/dl (2.5-4.9) Globulin 2.50 g/dl (1.3-3.2) Albumin/Globulin 1.16 Ratio Thyroid Stimulating 3.120 Hormone (TSH) MIU/L (0.465-4.680 ) Abdomen soft, incision clean dry intact Extremities nontender Assessment and plan She was discharged home in a stable and good condition Prescription for Motrin was given Patient instructed to follow-up with Dr. Baugh in 1 week Home Meds No Active Prescriptions or Reported Meds Primary Care Provider Care Physician No Primary Time spent on discharge: > 30 minutes Pending Labs Laboratory Tests Test 10/10/18 04:43 10/10/18 07:24 Sodium Level 140 mmol/L (135-144) Potassium Level 3.6 mmol/L (3.5-5.1) Chloride Level 109 mmol/L (97-110) Carbon Dioxide Level 24 mmol/L (21-31) Anion Gap 7 (5-13) Blood Urea Nitrogen 9 mg/dl (7-20) Creatinine 0.46 mg/dl (0.44-1.00) Est Glomerular Filtrat > 60 mL/min (>60) Rate mL/min Glucose Level 79 mg/dl (70-220) Calcium Level 7.8 mg/dl (8.4-10.2) White Blood Count 7.4 10^3/ul (4.8-10.8) Red Blood Count 2.90 10^6/ul (4.20-5.40) Hemoglobin 8.6 g/dl (12.0-16.0) Hematocrit 25.6 % (37.0-47.0) Mean Corpuscular Volume 88.3 fl (82.0-101.0) Mean Corpuscular Hemoglobin 29.7 pg (29.0-33.0) Mean Corpuscular 33.6 g/dl (32.0-37.0) Hemoglobin Concent Red Cell Distribution Width 13.4 % (11.5-14.5) Platelet Count 168 10^3/UL (140-415) Mean Platelet Volume 10.3 fl (7.4-10.4) Immature Granulocytes % 1.200 % (0.001-0.429) Neutrophils % 56.8 % (39.0-77.0) Lymphocytes % 30.1 % (15.0-51.0) Monocytes % 7.8 % (0.0-11.0) Eosinophils % 3.4 % (0.0-7.0) Basophils % 0.7 % (0.0-2.0) Nucleated Red Blood Cells % 0.0 /100WBC (0.0-0.0) Immature Granulocytes # 0.090 10^3/ul (0.0-0.031) Neutrophils # 4.2 10^3/ul (1.6-7.5) Lymphocytes # 2.2 10^3/ul (0.8-2.9) Monocytes # 0.6 10^3/ul (0.3-0.9) Eosinophils # 0.3 10^3/ul (0.0-0.5) Basophils # 0.1 10^3/ul (0.0-0.1) Nucleated Red Blood Cells # 0.0 10^3/ul (0.0-0.0) DORA ECHOLS MD October 10, 2018 09:54
--- NOTE | 2018-10-12 07:20 | OPR ---
DATE OF OPERATION: PREOPERATIVE DIAGNOSES: Ruptured ectopic , most likely left side, tubal; hemoperitoneum; an d hemorrhagic shock. POSTPERATIVE DIAGNOSES: Hemoperitoneum and hemorrhagic shock. Left tubal , isthmic portion , ruptured. Gestational sac was intact with a fetus in it. ANESTHESIA: General. 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 ESTIMATED BLOOD LOSS: From the surgery was minimal, approximately 50 mL OPERATION PERFORMED: Exploratory laparotomy, left salpingectomy, evacuation of the hemoperitoneum. DESCRIPTION OF PROCEDURE: Under the proper induction of general anesthesia, the patient was placed i n the frog position. Leon catheter was introduced into the bladder under sterile condition and repo sitioned to supine. Abdominal wall was prepped and draped in usual aseptic manner. A small Pfannens tiel incision was made. Incision was carried down through the subcutaneous tissue to the anterior re cti fascia, which was incised transversely in length of the incision. Fascial flap was created by bl unt and sharp dissection of tendinous attachment to cephalad and caudad. Two rectus muscles split in the midline. Peritoneal cavity was entered. Upon entering the peritoneal cavity, there was a copio us amount of blood coming out of the peritoneal cavity, which was sucked out along with the multiple clots from the abdomen, which was removed and the small Alonso was introduced but as soon as Alonso w as introduced with just pouring out through the Alonso. It was impossible to identify the fallopian tube because of the heavy bleeding from the abdominal cavity. Blindly, digitally, I tried to grasp t he left fallopian tube. I happened to retrieve the small gestational sac, which was intact with the fluid in it and fetus was inside. The fetus was approximately 2 cm in length and also left fallopian tube was grasped with a Luis Enrique forceps, and it was noticed that there was a ruptured area in the is thmic portion of the left fallopian tube, but there was not any active bleeding noted. The fallopian tube was grasped with Pean and the pedicle was resected. The fallopian tube was resected, and the p edicle was closed transfixed with #1 chromic catgut. Due to the large amount of blood clot with hemo peritoneum and in order to confirm the hemostasis during this procedure, the mesosalpinx was torn, wh ich was separately closed with 2-0 chromic catgut with a GI needle. Because of this, it was difficul t to repair due to the inadequate visualization from all the blood from the hemoperitoneum. While we are doing the procedure, the 4 units of packed red cells given. After the thorough hemostasis and e vacuation of hemoperitoneum as much as possible, sponge count was correct, and the parietal peritoneu m was closed using 0 chromic catgut in continuous manner. Muscle was closed with 0 chromic catgut in continuous manner. Fascia was closed with a #1 Vicryl in continuous manner, and the skin was closed with a 3-0 Monocryl in subcuticular manner. The procedure was completed. All pressure dressing wer e applied. Estimated blood loss from the surgical procedure was less than 50 mL. The patient was tr ansferred to the ICU in stable condition. Dictated By: FLAVIO CRUZ/ELISA Conf#: [id number] DID#: [id number]
== END 2018-10-10 10:35 | disposition home or self-care (01) | DRG 817 ==
LOC: E/R 21:43 → SDS 10-07 02:53 → ICU 10-07 06:13 → TEL 10-07 16:00 → MS1 10-09 15:45
PROVIDERS: ADMIT Obstetrics & Gynecology; ATTEND Family Medicine
PROC: 0UT60ZZ Resection of Left Fallopian Tube, Open Approach (ICD-10-PCS; 2018-10-07)
PROC: 02H633Z Insertion of Infusion Device into Right Atrium, Percutaneous Approach (ICD-10-PCS; 2018-10-07)
PROC: 30233N1 Transfusion of Nonautologous Red Blood Cells into Peripheral Vein, Percutaneous Approach (ICD-10-PCS; 2018-10-07)
PROC: 10T20ZZ Resection of Products of Conception, Ectopic, Open Approach (ICD-10-PCS; principal; 2018-10-07 02:25)
DX: O00.102 Left tubal pregnancy without intrauterine pregnancy (principal); O08.3 Shock following ectopic and molar pregnancy; R65.11 Systemic inflammatory response syndrome (SIRS) of non-infectious origin with acute organ dysfunction; N17.9 Acute kidney failure, unspecified; D62 Acute posthemorrhagic anemia; O08.1 Delayed or excessive hemorrhage following ectopic and molar pregnancy; E87.6 Hypokalemia; R73.9 Hyperglycemia, unspecified; D69.6 Thrombocytopenia, unspecified
CPT/HCPCS: 36415; 36430; 71045; 76801; 76817; 80048; 80053; 80076; 81001; 83036; 83690; 83735; 84100; 84443; 84702; 85025; 85610; 86850; 86900; 86901; 86920; 87086; 88305; 96361; 96365; 96375; J0690; J0744; J1100; J1170; J1200; J2250; J2405; J2543; J2710; J2795; J3010; J3480; J7030; P9016; P9045

== ENCOUNTER 2019-01-31 11:29 | Emergency (ER) | payer MEDICAID ==
[~2019-01-31] VITALS: Wt 70.9 kg
[~2019-01-31 11:29] MED LIST: DOCU-144 PO; NAPR-985 PO
[2019-01-31 11:31] VITALS: BP 143/64; PULSE 107; RESP 20
== END 2019-01-31 14:36 | disposition home or self-care (01) ==
LOC: FTE 11:29
DX: R10.2 Pelvic and perineal pain (principal)
CPT/HCPCS: 74176; 76705; 76856; 80053; 81001; 81025; 83690; 85025; Z7502